=== PATIENT | female | born 1995 | race Caucasian/White ===

== ENCOUNTER 2016-09-14 12:13 | Emergency (ER) ==
[2016-09-14 12:44] VITALS: BP 127/78
--- NOTE | 2016-09-14 13:33 | PROVIDER DOCUMENTATION ---
[facility] General - General Source: patient - History of Present Illness-[facility] General [facility] Location: reports: throat Quality of Pain: reports: aching Severity: reports: moderate Onset/Duration: reports: last night Timing: reports: still present Locality of Occurance: Home Similar Symptoms Previously?: No Recently seen or treated by another doctor?: No <Nadira Beard - Last Filed: 09/14/16 13:28> <Roma Collier - Last Filed: 09/14/16 14:19> - General Chief Complaint: Sore Throat Stated Complaint: SORE THROAT Time Seen by Provider: 09/14/16 12:52 Allergies/Adverse Reactions: Patient Allergies Allergy/AdvReac Type Severity Reaction Status Date / Time sulfamethoxazole Allergy Mild RASH Verified 05/23/15 15:01 [From Bactrim] trimethoprim [From Bactrim] Allergy Mild RASH Verified 05/23/15 15:01 Home Medications: Home Medication List Medication Instructions Recorded Confirmed Last Taken Type Amoxicillin 875 mg PO BID #20 tablet 09/14/16 Unknown Rx - History of Present Illness-[facility] General Nature of Presenting Problem: Reports cc of sorethroat since last night with nausea and voice change. Denies v ,f,abd pain. Took pepto bismol for nausea. (Nadira Beard) Review of Systems - Adult - REVIEW OF SYSTEMS - ADULT Constitutional: denies: chills, fever, fatique Eyes: reports: no symptoms reported Ears, Nose, Mouth & Throat: reports: throat pain. denies: ear pain, sinus problem Cardiovascular: denies: chest pain, irregular heart rate, orthopnea Respiratory: denies: cough, shortness of breath, wheezing Gastrointestinal: reports: nausea. denies: abdominal pain, diarrhea, vomiting Genitourinary: reports: no symptoms reported Musculoskeletal: reports: no symptoms reported Integumentary: reports: no symptoms reported Neurological: reports: no symptoms reported Psychiatric: reports: no symptoms reported Endocrine: reports: no symptoms reported Hematologic/Lymphatic: reports: no symptoms reported Allergic/Immunologic: reports: no symptoms reported All Other Systems: Reviewed and Negative <Nadira Beard - Last Filed: 09/14/16 13:28> Past History - Adult - PAST MEDICAL HISTORY-ADULT Review of Records: reports: Nursing Assessment Review Major Childhood Illnesses: reports: denies history Cardiovascular: reports: denies history - PRIOR SURGERIES/PROCEDURES Surgical/Procedure History: reports: none - IMMUNIZATION STATUS Childhood Immunizations: See Nurse Assessment Flu Vaccine: See Nurse Assessment <Nadira Beard - Last Filed: 09/14/16 13:28> Physical Exam- EENT - Physical Exam EENT Initial Vital Signs Reviewed: Yes General Appearance: appears well, alert, no apparent distress Eye Exam: bilateral eye: PERRL, EOMI Ear Exam: bilateral ear: canal normal, TM normal Throat Exam: pharynx tenderness, other (erythematous pharynx) Neck: non-tender, full range of motion, supple Respiratory: lungs clear, normal breath sounds Cardiovascular: normal peripheral pulses, regular rate, rhythm Abdominal Exam: non tender, soft Extremity: normal range of motion, normal capillary refill Integumentary: normal color, normal turgor, warm/dry <Roma Collier - Last Filed: 09/14/16 14:19> Progress <Nadira Beard - Last Filed: 09/14/16 13:28> <Roma Collier - Last Filed: 09/14/16 14:19> - PLAN OF CARE/RESULTS Progress/Plan/Lab Results: Orders Category Date Time Status strep [DIRECT STREP PL] Stat Lab 09/14/16 12:48 Completed Vital Signs - 24 hr 09/14/16 12:42 Temperature 99.3 F Pulse Rate 73 Respiratory 18 Rate Blood Pressure 127/78 O2 Sat by Pulse 100 Oximetry Laboratory Tests 09/14/16 12:48 Group A Strep Rapid NEGATIVE (Nadira Beard) Discussed care, diagnosis and need for follow-up, patient verbalized understanding Laboratory Tests 09/14/16 12:48 Group A Strep Rapid NEGATIVE Orders Category Date Time Status strep [DIRECT STREP PL] Stat Lab 09/14/16 12:48 Completed Last Vital Signs Temp 99.3 F 09/14/16 12:42 Pulse 73 09/14/16 12:42 Resp 18 09/14/16 12:42 BP 127/78 09/14/16 12:42 Pulse Ox 100 09/14/16 12:42 Allergies sulfamethoxazole [From Bactrim] Allergy (Mild, Verified 05/23/15 15:01) RASH trimethoprim [From Bactrim] Allergy (Mild, Verified 11/29/15 15:01) RASH Lab Tests 09/14/16 12:48 Group A Strep Rapid NEGATIVE Vital Signs - 24 hr 09/14/16 12:42 Temperature 99.3 F Pulse Rate 73 Respiratory 18 Rate Blood Pressure 127/78 O2 Sat by Pulse 100 Oximetry (Roma Collier) Departure <Nadira Beard - Last Filed: 09/14/16 13:28> - Departure Time of Disposition Order: 13:51 Certified Medical Emergency: Emergent <Roma Collier - Last Filed: 09/14/16 14:19> - Departure DIAGNOSIS: Pharyngitis Qualifiers: Pharyngitis/tonsillitis etiology: unspecified etiology Qualified Code(s): J02.9 - Acute pharyngitis, unspecified Disposition: HOME 01 Condition: Stable Additional Instructions: ED Follow Up Instructions: You have been treated by a care provider in the Emergency Department. These instructions are being provided to you so you can have an understanding of how to care for yourself upon discharge. Upon discharge from the Emergency Department, you are responsible for making arrangements for follow-up care by a physician of your choice. Take all prescribed medications as directed. Return to the Emergency Department immediately for any new or worsening symptoms. You may call the Physician Referral phone number at [phone] to obtain a list of Physicians who are taking new patients. Prescriptions: Amoxicillin 875 mg PO BID #20 tablet Referrals: None,PCP [Primary Care Provider] - Attestation - Scribe Verification/Attestation Scribe:: Nadira Beard Acting as Scribe for:: Roma Collier Scribe documention review:: This chart was documented by a scribe and accurately reflects the service the provider performed and the decisions made by the provider. - Physician/ CHRIS Attestation Patient care was provided by Advanced Practice Provider:: Yes Advanced Practice Provider:: Roma Collier Advanced Practice Provider documentation review:: The Mid-level provider documentation, treatment plan and medical decision making was reviewed by the physician who agrees with all treatment and medical decision making by the MLP. <Nadira Beard - Last Filed: 09/14/16 13:28> - Physician/ CHRIS Attestation Patient care was provided by Advanced Practice Provider:: Yes Advanced Practice Provider:: Roma Collier Advanced Practice Provider documentation review:: The Mid-level provider documentation, treatment plan and medical decision making was reviewed by the physician who agrees with all treatment and medical decision making by the MLP. <Roma Collier - Last Filed: 09/14/16 14:19> Physician Attestation
== END 2016-09-14 14:39 | disposition home or self-care (01) ==
LOC: P.ED 12:13
DX: J02.9 Acute pharyngitis, unspecified (principal); R11.0 Nausea
CPT/HCPCS: 87081; 87430; 99283